=== PATIENT | male | born 1960 | race Caucasian/White ===

== ENCOUNTER 2017-11-20 00:02 | Emergency (ER) | payer SELFPAY ==
[~2017-11-20] VITALS: Ht 172.7 cm; Wt 68.0 kg
[2017-11-20 00:13] VITALS: BP 145/74; PULSE 104; RESP 16; TEMP 97.6; O2SAT 95
--- NOTE | 2017-11-20 00:57 | PD ---
HPI Chief Complaint: Medical Clearance Time Seen by Provider: 00:08 Travel History International Travel<30 days: No Contact w/Intl Traveler<30days: No Traveled to known affect area: No History of Present Illness HPI pt sent from [facility] holding recent the in custody is to be intoxicated accompanied by [employer] police officer. And he was seen in the holding cell and apparently medical staff there thought his eyes were not aligning so he is sent in for for eyes disconjugate gaze. Patient denies diplopia he denies visual changes he denies any complaints with his eyes. Intoxicated hands are cuffed behind his back sitting on the edge of the stretcher [employer] police officer bedside patient is intoxicated so ROS and HPI is difficult to assess PFSH Past Medical History Asthma: Yes COPD: Yes Cerebrovascular Accident: Yes Tetanus Vaccination: < 5 Years Influenza Vaccination: No Past Surgical History Abdominal Surgery: Yes (HERNIA REPAIR) Social History Alcohol Use: Yes Tobacco Use: Yes Substance Use: No Allergies-Medications (Allergen,Severity, Reaction): Coded Allergies: No Known Allergies (Unverified , 11/20/17) Physical Exam Narrative GENERAL: Patient is awake alert he is intoxicated but pleasantly drunk and cooperative SKIN: Warm and dry. HEAD: Atraumatic. Normocephalic. EYES: Pupils equal and round. No scleral icterus. No injection or drainage. Extraocular motions are intact gaze is normal conjugate eye movements with no diplopia while tracking horizontal and vertical. Funduscopic I can see into the vessels of the optic nerve area both normal vasculature discs are not seen patient has no diplopia vision is equal with covering each eye separately and monocular vision is equal in both eyes ENT: No nasal bleeding or discharge. Mucous membranes pink and moist. NECK: Trachea midline. No JVD. CARDIOVASCULAR: Regular rate and rhythm. RESPIRATORY: No accessory muscle use. Clear to auscultation. Breath sounds equal bilaterally. GASTROINTESTINAL: Abdomen soft, non-tender, nondistended. Hepatic and splenic margins not palpable. MUSCULOSKELETAL: Extremities without clubbing, cyanosis, or edema. No obvious deformities. NEUROLOGICAL: Awake and alert. No obvious cranial nerve deficits. Motor grossly within normal limits. Five out of 5 muscle strength in the arms and legs. Normal speech. PSYCHIATRIC: Appropriate mood and affect; insight and judgment normal. Data Data Last Documented VS Vital Signs Date Time Temp Pulse Resp B/P (MAP) Pulse Ox O2 Delivery O2 Flow Rate FiO2 4/27/18 00:13 97.6 104 16 145/74 (97 95 Orders Orders Ed Discharge Order (11/20/17 00:58) MDM Medical Decision Making Medical Screen Exam Complete: Yes Emergency Medical Condition: Yes Differential Diagnosis Differential diagnosis includes conjunctivitis versus alcohol induced disconjugate gaze versus abducens nerve palsy secondary to virus or myasthenia gravis Narrative Course Patient has an exam funduscopic vessels in his optic area looked normal bilateral anterior chambers look normal there is no injection of his purulent there is no chemosis of the sclera he has complete equal ocular motions that are symmetric conjugate and never has diplopia while tracking my finger horizontal and vertical patient is safe for discharge back into police custody Diagnosis Primary Impression: Alcohol intoxication Patient Instructions: Alcohol Intoxication (ED), General Instructions Disposition: 01 DISCHARGE HOME Condition: Good Jm Brown MD Nov 20, 2017 00:57
== END 2017-11-20 01:07 | disposition home or self-care (01) ==
LOC: NEPE 00:02
DX: F10.129 Alcohol abuse with intoxication, unspecified (principal); Z72.0 Tobacco use
CPT/HCPCS: 99282